=== PATIENT | female | born 2000 | race Caucasian/White ===

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

== ENCOUNTER 2024-07-25 08:33 | Outpatient (CLI) | payer MEDICAID, SELFPAY ==
--- NOTE | ~2024-07-25 | US_ITS ---
EXAMINATION: US pelvic complete w TV DATE: 07/25/2024 09:29 INDICATION: Abnormal uterine and vaginal bleeding. TECHNIQUE: Multiple transabdominal and transvaginal sonographic images of the pelvis were obtained. COMPARISON: None. FINDINGS: TRANSABDOMINAL ULTRASOUND: The uterus measures 6.9 x 3.8 x 4.2 cm. There is no free fluid in the pelvis. TRANSVAGINAL ULTRASOUND: The endometrial complex measures 9 mm in thickness. There is a nabothian cyst in the cervix. The ovar ies are not visualized. IMPRESSION: 1. No etiology for the patient's symptoms. Reviewed, dictated and finalized at location L.
--- OUTSIDE RECORDS SUMMARY | 2024-07-25 08:53 | XMS_ITS | Clinical Summary ---
Author Organization [facility] [place] Address [address] [place] [address] Phone Care Team Providers Care Long Wall Mining Machine Tender Name Role Phone Jonathan Pruett Primary Care Provider Social History Tobacco Use Types Packs/Day Years Used Date Smoking Tobacco: Never Assessed Comments Unknown Sex and Gender Information Value Date Recorded Sex Assigned at Not on file Legal Sex Female 8:33 AM PROGRAM LEAD Gender Identity Not on file Sexual Orientation Not on file Plan of Treatment Health Maintenance Due Date Last Done Comments Hepatitis C Virus (HCV) Screening 2001 Pap Smear 2022 Influenza Immunization (#1) 01/13/20240 09/2020, 01/15/2020, 01/21/2019, Additional history exists SARS-COV-2 Immunization ( season) 2024 05/01/2021, 09/07/2020, 08/17/2020 Respiratory Syncytial Virus (RSV) Immunization (Adult) (1 - 1-dose 75+ series) 2076 Hepatitis B Immunization Completed 002, 2001, 2001 Pneumococcal Immunization Combined Aged Out 08/11/2002, 2001, 2001, Additional history exists No longer eligible based on patient's age to complete this topic DTaP/Tdap/Td Immunization Discontinued 2012, 12/17/2006, 12/02/2002, Additional history exists TdaP Immunization Completed 10/14/2012 Human Papillomavirus (HPV) Immunization Completed 04/18/2013, 12/16/2012, 10/14/2012 Meningococcal Immunization (ACWY) Completed 03/20/2018, 05/18/2017, 10/14/2012 Meningococcal B Immunization Completed 04/22/2018, 03/20/2018 Rotavirus Immunization Aged Out No lo nger eligible based on patient's age to complete this topic Insurance [facility] Care Teams Long Wall Mining Machine Tender Relationship Specialty Start Date End Date Jonathan Pruett PAC [address] [place] [address] PCP - General Physician Programs Director 05/11/21
--- OUTSIDE RECORDS SUMMARY | 2024-07-25 08:53 | XMS_ITS | Referral Summary ---
Author Organization [address] lt Address [address] [place] [address] Care Team Providers Care Plant Pathology Teacher Name Role Phone No, Physician Primary Care Provider [phone] Allergies No known active allergies Medications escitalopram (LEXAPRO) 10 mg tablet Take 1 tablet (10 mg total) by mouth daily 07/01/2021 Active levonorgestreL-e thinyl estrad (LUTERA) 0.1-20 mg-mcg per tablet Take 1 tablet by mouth daily Active semaglutide (Ozempic) 0.25 mg or 0.5 mg (2 mg/3 mL) pen injector injection Inject 0.5 mg under the skin every 7 days Active Active Problems No known active problems Social History Tobacco Use Types Packs/Day Years Used Date Smoking Tobacco: Never Smokeless Tobacco: Never Personal Safety Answer Date Recorded Getting School Help Needed Not on file 05/14 Comments Unknown Sex and Gender Information Value Date Recorded Sex Assigned at Not on file Legal Sex Female 8:41 AM CDT Gender Identity Not on file Sexual Orientation Not on file Last Filed Vital Signs Vital Sign Reading Time Taken Comments Blood Pressure 110/86 01/01/2024 11:02 AM CDT Pulse 93 01/01/2024 11:02 AM CDT Temperature 36.1 C (97 F) 01/01/2024 11:02 AM CDT Respiratory Rate 18 01/01/2024 11:02 AM CDT Oxygen Saturation 99% 01/01/2024 11:02 AM CDT Inhaled Oxygen Concentration - - Weight 195 kg (430 lb) 01/01/2024 11:02 AM CDT Height 171.5 cm (5' 7.5 ) 01/01/2024 11:02 AM CD T Body Mass Index 66.35 01/01/2024 11:02 AM CDT Plan of Treatment Not on file Insurance [facility] IDPA Care Teams Plant Pathology Teacher Relationship Specialty Start Date End Date No, Physician PCP - General 08/31/21
--- OUTSIDE RECORDS SUMMARY | 2024-07-25 08:53 | XMS_ITS | Clinical Summary ---
Author Organization [address] lt Address [address] [place] [address] Care Team Providers Care Optical Manager Name Role Phone No, Physician Primary Care Provider [phone] Allergies No known active allergies Medications escitalopram [...] Active Active Problems No known active problems Surgical History Surgery Date Site/Laterality Comments TONSILLECTOMY Medical History Medical History Date Comments Depression Anxiety Family History Medical History Relation Name Comments Diabetes Father Hypertension Father Sleep apnea Father No Known Problems Mother Relation Name Status Comments Father Alive Mother Alive Social History Tobacco Use Types Packs/Day Years Used Date Smoking Tobacco: Never Smokeless Tobacco: Never Personal Safety Answer Date Recorded Getting School Help Needed Not on file 05/14 Comments Unknown Sex and Gender Information Value Date Recorded Sex Assigned at Not on file Legal Sex Female 8:41 AM CDT Gender Identity Not on file Sexual Orientation Not on file Obstetrics History Last Filed Vital Signs Vital Sign Reading [...] 01/01/2024 11:02 AM CDT Plan of Treatment Health Maintenance Due Date Last Done Comments Cervical Cancer Screening 2001 Depression Screening 2001 Hepatitis C Screening 2001 Regular Well Visit/Exam 18-64 2019 DTaP/Tdap/Td Vaccine (7 - Td or Tdap) 10/14/2022 10/14/2012, 12/17/2006, 12/02/2002, Additional history exists Covid-19 Vaccine (2023-2 5 season) 2024 05/01/2021, 09/07/2020, 08/17/2020 Influenza Vaccine (#1) 2024 , 01/15/2020, 01/21/2019, Additional history exists Hepatitis B Screening Completed 02/13/2002 , 2001, 2001 Pneumococcal vaccine <65 Completed 003, 2001, 2001, Additional history exists Varicella Vaccines Completed 12/17/2006, 05/20/2002 HPV Vaccines Completed 04/18/2013, 09/2012, 10/14/2012 Meningococcal B Vaccine Completed 04/22/2018, 03/20 Insurance [facility] [place] [address] [facility] [employer] IDPA Care Teams Optical Manager Relationship Specialty Start Date End Date No, Physician PCP - General 08/31/21
== END 2024-07-25 08:34 | disposition home or self-care (01) ==
LOC: ANHIMG 08:34
PROVIDERS: PCP Internal Medicine; Visit Provider Student in an Organized Health Care Education/Training Program
DX: N93.9 Abnormal uterine and vaginal bleeding, unspecified (principal)
CPT/HCPCS: 76830; 76856

== ENCOUNTER 2024-07-30 08:05 | Outpatient (CLI) | payer MEDICAID, SELFPAY ==
--- OUTSIDE RECORDS SUMMARY | 2024-07-30 08:13 | XMS_ITS | Clinical Summary ---
Author Organization [address] lt Address [address] [place] [address] Care Team Providers Care Musical Instruments Assembler Name Role Phone No, Physician Primary Care Provider [phone] Allergies No known active allergies Medications escitalopram [...] Meningococcal B Vaccine Completed 04/22/2018, 03/20 Insurance [facility] [place] [address] [facility] [employer] IDPA Care Teams Musical Instruments Assembler Relationship Specialty Start Date End Date No, Physician PCP - General 08/31/21
--- OUTSIDE RECORDS SUMMARY | 2024-07-30 08:13 | XMS_ITS | Referral Summary ---
Author Organization [address] lt Address [address] [place] [address] Care Team Providers Care Marine Engineering Teacher Name Role Phone No, Physician Primary Care Provider [phone] Allergies No known active allergies Medications escitalopram [...] Plan of Treatment Not on file Insurance [facility] IDPA Care Teams Marine Engineering Teacher Relationship Specialty Start Date End Date No, Physician PCP - General 08/31/21
--- OUTSIDE RECORDS SUMMARY | 2024-07-30 08:13 | XMS_ITS | Clinical Summary ---
Author Organization [facility] Address [address] [place] [address] Phone Care Team Providers Care Quality Technician Name Role Phone Leandro Pruettanette Gray [facility] Primary Care Provider Social History Tobacco Use Types Packs/Day Years Used Date Smoking Tobacco: Never Assessed Comments Unknown Sex and Gender Information Value Date Recorded Sex Assigned at Not on file Legal Sex Female 8:33 AM CERTIFIED OPHTHALMIC TECHNICIAN Gender Identity Not on file Sexual Orientation Not on file Plan of Treatment Health Maintenance Due Date Last Done Comments Hepatitis C Virus (HCV) Screening 2001 Pap Smear 2022 Influenza Immunization (#1) 2024 09/0 09/2020, 01/15/2020, 01/21/2019, Additional history exists SARS-COV-2 [...] patient's age to complete this topic Insurance [facility] Care Teams Quality Technician Relationship Specialty Start Date End Date Jonathan Pruett PAC [address] [place], [place] [id number] PCP - General Physician Business Strategist 05/11/21
[2024-07-30 19:19] LABS: Basophils Percent Auto 0.4 % (0.2-1.2); Eosinophils Absolute Auto 0.1 K/mm3 (0-0.3); Eosinophils Percent Auto 1.7 % (0-4.4); Hematocrit 28.1 % (37.0-47.0); Hemoglobin 7.2 g/dL (12.0-15.0); Immature Granulocyte Absolute 0.08 K/mm3 (0.00-0.031); Lymphocytes Absolute Auto 2.46 K/mm3 (0.9-3.2); Lymphocytes Percent Auto 30.1 % (18.3-44.2); Mean Corpuscular HGB Conc 25.6 g/dl (32-36); Mean Corpuscular Hemoglobin 18.3 pg (26-34); Mean Corpuscular Volume 71.5 fl (80-100); Mean Platelet Volume 9.5 fl (7.4-10.4); Monocytes Absolute Auto 0.6 K/mm3 (0.1-0.6); Monocytes Percent Auto 7.5 % (2.6-8.5); Neutrophils Absolute Auto 4.8 K/mm3 (1.3-6.7); Neutrophils Percent Auto 59.3 % (45.5-73.1); Platelet Count Result 435 k/mm3 (150-375); Red Blood Count 3.93 M/mm3 (4.2-5.4); Red Cell Distribution Width 19.3 % (11.5-14.5); White Blood Count 8.2 K/mm3 (4.5-10.0)
[2024-07-30 19:53] LABS: Platelet Estimate Increased (Adequate); Schistocytes None Seen
[2024-07-30 19:54] LABS: Band Neutrophils Percent 0 % (0-6)
[2024-07-30 19:55] LABS: Anisocytosis 3+; Hypochromasia 1+; Microcytosis 1+ (NORMAL)
[2024-07-30 19:56] LABS: Polychromasia 1+
== END 2024-07-30 08:06 | disposition home or self-care (01) ==
LOC: ANHBWCLAB 08:07
PROVIDERS: PCP Internal Medicine; Visit Provider Internal Medicine
DX: D64.9 Anemia, unspecified (principal); E61.1 Iron deficiency
CPT/HCPCS: 36415; 85025

== ENCOUNTER 2024-08-04 06:42 | Outpatient (RCR) | payer BC, MEDICAID, SELFPAY ==
[2024-08-04] VITALS (9 sets, daily range): BP systolic 126–144; BP diastolic 66–87; PULSE 88–99; RESP 12–19; TEMP 36.7–37.1; O2SAT 97–100
[2024-08-04 07:56] LABS: Hematocrit 26.3 % (37.0-47.0)
== END 2024-11-02 23:59 | disposition home or self-care (01) ==
LOC: ANHCPCTRAN 06:42
PROVIDERS: PCP Internal Medicine; Visit Provider Internal Medicine
DX: D64.9 Anemia, unspecified (principal)
CPT/HCPCS: 36415; 36430; 85014; 85018; 86850; 86900; 86901; 86923; P9016

== ENCOUNTER 2024-12-25 06:32 | Outpatient (CLI) | payer BC, MEDICAID, SELFPAY ==
--- OUTSIDE RECORDS SUMMARY | 2024-12-25 06:38 | XMS_ITS | Clinical Summary ---
Author Organization [facility] [place] Address [address] [place] [address] Phone Care Team Providers Care Instructor Ground Services Name Role Phone Jonathan Pruett Primary Care Provider Social History Tobacco Use Types Packs/Day Years Used Date Smoking Tobacco: Never Assessed Comments Unknown Sex and Gender Information Value Date Recorded Sex Assigned at Not on file Legal Sex Female 8:33 AM CORPORATE ADMINISTRATIVE ASSISTANT Gender Identity Not on file Sexual Orientation Not on file Plan of Treatment Health Maintenance Due Date Last Done Comments Hepatitis C Virus (HCV) Screening 2001 SARS-COV-2 Immunization ( season) 2024 05/01/2021, 09/07/2020, 08/17/2020 Influenza Immunization (#1) 2025 090 09/2020, 01/15/2020, 01/21/2019, Additional history exists Respiratory Syncytial Virus (RSV) Immunization (Adult) (1 [...] patient's age to complete this topic Insurance [facility] Care Teams Instructor Ground Services Relationship Specialty Start Date End Date Jonathan Pruett PAC [address] [place], [place] [phone] PCP - General Physician Insurance [facility] 05/11/21
--- OUTSIDE RECORDS SUMMARY | 2024-12-25 06:38 | XMS_ITS | Clinical Summary ---
Author Organization [address] Address [address] [place] [address] Care Team Providers Care Surveillance Sensor Operator Name Role Phone No, Physician Primary Care Provider [phone] Allergies No known active allergies Medications escitalopram [...] 11:02 AM CDT Height 171.5 cm (5' 7.5) 01/01/2024 11:02 AM CD T Body Mass [...] 2024 05/01/2021, 09/07/2020, 08/17/2020 Influenza Vaccine (#1) 2025 , 01/15/2020, 01/21/2019, Additional history exists Hepatitis B Screening Completed 02/13/2002 , 2001, 2001 Pneumococcal vaccine <65 Completed 003, 2001, 2001, Additional history exists Varicella Vaccines Completed 12/17/2006, 05/20/2002 HPV Vaccines Completed 04/18/2013, 09/2012, 10/14/2012 Meningococcal B Vaccine Completed 04/22/2018, 03/20 [place] [facility] [address] [facility] ID[employer] Care Teams Surveillance Sensor Operator Relationship Specialty Start Date End Date No, Physician PCP - General 08/31/21
[2024-12-25 18:46] LABS: Alanine Aminotransferase 12 U/L (6-35); Albumin Level 3.6 g/dL (3.5-5.1); Alkaline Phosphatase 75 U/L (38-126); Anion Gap 6 mmol/L (4-12); Aspartate Amino Transferase 47 U/L (14-36); Bilirubin,Total 0.4 mg/dL (0.2-1.3); Blood Urea Nitrogen 12 mg/dL (7-17); Calcium 8.9 mg/dL (8.4-10.2); Carbon Dioxide 27 mmol/L (22-30); Chloride 104 mmol/L (98-107); Estimated Glomerular Filt Rate > 60; Glucose 105 mg/dL (65-110); Potassium 4.4 mmol/L (3.4-5.0); Sodium 137 mmol/L (137-145); Total Protein 6.6 g/dL (6.3-8.2)
[2024-12-25 18:47] LABS: Iron 29 ug/dL (37-170)
[2024-12-25 19:04] LABS: Hematocrit 30.8 % (37.0-47.0); Hemoglobin 8.6 g/dL (12.0-15.0); Immature Granulocyte Percent A 1.0 % (0-0.5); Lymphocytes Absolute Auto 2.10 K/mm3 (0.9-3.2); Mean Corpuscular HGB Conc 27.9 g/dl (32-36); Mean Corpuscular Hemoglobin 19.3 pg (26-34); Mean Corpuscular Volume 69.2 fl (80-100); Nucleated Red Blood Cells Absolute Auto 0.000 K/mm3 (0.0-0.012); Nucleated Red Blood Cells Perc 0.0 % (0.0-0.2); Platelet Count Result 419 k/mm3 (150-375); Red Blood Count 4.45 M/mm3 (4.2-5.4); White Blood Count 8.0 K/mm3 (4.5-10.0)
[2024-12-25 19:05] LABS: Percent Iron Saturation 7 % (20-50)
[2024-12-25 19:09] LABS: Hematocrit 31.8 % (37.0-47.0); Hemoglobin 8.5 g/dL (12.0-15.0)
[2024-12-25 19:14] LABS: Anisocytosis 1+; Hypochromasia 1+; Microcytosis 1+ (NORMAL); Ovalocytes 1+
[2024-12-25 19:15] LABS: Schistocytes None Seen
[2024-12-25 19:31] LABS: Ferritin 7.62 ng/mL (6.24-137)
== END 2024-12-25 06:33 | disposition home or self-care (01) ==
LOC: ANHBWCLAB 06:37
PROVIDERS: PCP Internal Medicine; Visit Provider Internal Medicine
DX: Z00.00 Encounter for general adult medical examination without abnormal findings (principal); E61.1 Iron deficiency; D64.9 Anemia, unspecified
CPT/HCPCS: 36415; 80053; 82728; 83540; 83550; 85014; 85018; 85025

== ENCOUNTER 2025-03-03 08:05 | Outpatient (CLI) | payer BC, MEDICAID, SELFPAY ==
--- NOTE | ~2025-03-03 | US_ITS ---
US abdomen limited INDICATION: Abnormal findings of blood chemistries PROCEDURE: Realtime right upper abdominal ultrasound. COMPARISON: Ultrasound dated 05/29/2013 FINDINGS: The pancreas is normal without focal mass or pancreatic ductal dilation. Liver echotexture is diffusely echogenic, compatible with fatty infiltration. No focal hepatic mass. There is normal directional flow in the portal vein. The gallbladder is normal without stones, gallbladder wall thickening or pericholecystic fluid. Common bile duct measures 5 mm. No sonographic Higgins's sign. IMPRESSION: 1: Fatty infiltration of the liver. Reviewed, dictated and finalized at location O.
--- OUTSIDE RECORDS SUMMARY | 2025-03-03 08:12 | XMS_ITS | Clinical Summary ---
Author Organization [facility] [place] Address [address] [place] [address] Phone Care Team Providers Care Hardwood Sawyer Name Role Phone Jonathan Pruett Primary Care Provider Social History Tobacco Use Types Packs/Day Years Used Date Smoking Tobacco: Never Assessed Comments Unknown Sex and Gender Information Value Date Recorded Sex Assigned at Not on file Legal Sex Female 8:33 AM REWIND OPERATOR Gender Identity Not on file Sexual Orientation Not on file Plan of Treatment Health Maintenance Due Date Last Done Comments Hepatitis C Virus (HCV) Screening 2001 Influenza Immunization (#1) 2025 09/0 09/2020, 01/15/2020, 01/21/2019, Additional history exists SARS-COV-2 Immunization ( season) 2025 05/01/2021, 09/07/2020, 08/17/2020 Respiratory Syncytial Virus (RSV) [...] patient's age to complete this topic Insurance [facility] Care Teams Hardwood Sawyer Relationship Specialty Start Date End Date Jonathan Pruett PAC [address] [place], [place] [phone] PCP - General Physician Property Analyst 05/11/21
--- OUTSIDE RECORDS SUMMARY | 2025-03-03 08:12 | XMS_ITS | Clinical Summary ---
Author Organization [address] lt Address [address] [place] [address] Care Team Providers Care Business Development Assistant Name Role Phone No, Physician Primary Care Provider [phone] Allergies No known active allergies Medications escitalopram [...] 12/17/2006, 12/02/2002, Additional history exists Covid-19 Vaccine ( - 2024-2 6 season) 2025 05/01/2021, 09/07/2020, 08/17/2020 Influenza Vaccine (#1) 2025 , 01/15/2020, 01/21/2019, Additional history exists Hepatitis B Screening Completed 02/13/2002 , 2001, 2001 Pneumococcal vaccine <65 Completed 003, 2001, 2001, Additional history exists Varicella Vaccines Completed 12/17/2006, 05/20/2002 HPV Vaccines Completed 04/18/2013, 09/2012, 10/14/2012 Meningococcal B Vaccine Completed 04/22/2018, 03/20 Insurance [facility] [place] [address] [facility] [employer] IDPA Care Teams Business Development Assistant Relationship Specialty Start Date End Date No, Physician PCP - General 08/31/21
== END 2025-03-03 08:06 | disposition home or self-care (01) ==
PROVIDERS: PCP Internal Medicine; Visit Provider Internal Medicine
DX: K76.0 Fatty (change of) liver, not elsewhere classified (principal); R79.89 Other specified abnormal findings of blood chemistry
CPT/HCPCS: 76705

== ENCOUNTER 2025-04-29 06:45 | Outpatient (CLI) | payer MEDICAID, SELFPAY ==
--- OUTSIDE RECORDS SUMMARY | 2025-04-29 06:47 | XMS_ITS | Clinical Summary ---
Author Organization [facility] [place] Address [address] [place] [address] Phone Care Team Providers Care Film Or Tape Librarian Name Role Phone Jonathan Pruett Primary Care Provider Social History Tobacco Use Types Packs/Day Years Used Date Smoking Tobacco: Never Assessed Comments Unknown Sex and Gender Information Value Date Recorded Sex Assigned at Not on file Legal Sex Female 8:33 AM HAND MODEL Gender Identity Not on file Sexual Orientation [...] patient's age to complete this topic Insurance [facility] Care Teams Film Or Tape Librarian Relationship Specialty Start Date End Date Jonathan Pruett PAC [address] [place], [place] [phone] PCP - General Physician Emergency Spill Response Technician 05/11/21
[2025-04-29 19:26] LABS: Hematocrit 36.2 % (37.0-47.0); Hemoglobin 9.8 g/dL (12.0-15.0); Immature Granulocyte Percent A 0.6 % (0-0.5); Lymphocytes Absolute Auto 2.14 K/mm3 (0.9-3.2); Mean Corpuscular HGB Conc 27.1 g/dl (32-36); Mean Corpuscular Hemoglobin 19.1 pg (26-34); Mean Corpuscular Volume 70.6 fl (80-100); Nucleated Red Blood Cells Absolute Auto 0.000 K/mm3 (0.0-0.012); Nucleated Red Blood Cells Perc 0.0 % (0.0-0.2); Platelet Count Result 408 k/mm3 (150-375); Red Blood Count 5.13 M/mm3 (4.2-5.4); White Blood Count 7.8 K/mm3 (4.5-10.0)
[2025-04-29 19:36] LABS: Alanine Aminotransferase 14 U/L (6-35); Albumin Level 3.6 g/dL (3.5-5.1); Alkaline Phosphatase 83 U/L (38-126); Anion Gap 4 mmol/L (4-12); Aspartate Amino Transferase 42 U/L (14-36); Bilirubin,Total 0.3 mg/dL (0.2-1.3); Blood Urea Nitrogen 10 mg/dL (7-17); Calcium 9.1 mg/dL (8.4-10.2); Carbon Dioxide 27 mmol/L (22-30); Chloride 107 mmol/L (98-107); Estimated Glomerular Filt Rate > 60; Glucose 105 mg/dL (65-110); Potassium 4.8 mmol/L (3.4-5.0); Sodium 138 mmol/L (137-145); Total Protein 6.7 g/dL (6.3-8.2)
[2025-04-29 19:38] LABS: Iron 30 ug/dL (37-170)
[2025-04-29 19:47] LABS: Percent Iron Saturation 8 % (20-50)
[2025-04-29 20:19] LABS: Ferritin 10.20 ng/mL (6.24-137)
[2025-04-29 20:22] LABS: Hypochromasia 1+; Ovalocytes 1+; Schistocytes None Seen
== END 2025-04-29 06:46 | disposition home or self-care (01) ==
PROVIDERS: PCP Internal Medicine; Visit Provider Internal Medicine
DX: Z00.00 Encounter for general adult medical examination without abnormal findings (principal); D64.9 Anemia, unspecified; E61.1 Iron deficiency
CPT/HCPCS: 36415; 80053; 82728; 83540; 83550; 85025